=== PATIENT | female | born 1960 | race Caucasian/White ===

== ENCOUNTER 2017-01-18 10:15 | Day surgery (SDCO) | payer MEDICARE, OTHER ==
[~2017-01-18] VITALS: Ht 170.2 cm; Wt 57.7 kg
[2017-01-18 10:46] LABS: BASOPHIL 0.4 % (0-2); EOSINOPHIL 14.7 % (0-5); HCT 46.6 % (37.0-47.0); HGB 15.8 g/dl (12.5-16.0); LYMPHOCYTE 17.3 % (15-48); MCH 31.9 pg (25.0-31.0); MCHC 33.9 g/dL (32.0-36.0); MONOCYTE 6.4 % (0-12); MPV 10.3 fL (6.0-9.5); NEUTROPHIL 61.2 % (41-80); PLT 286 K/uL (150-400); RBC 4.96 M/uL (4.20-5.40); RDW 12.8 % (11.5-14.0); WBC 10.9 K/uL (4.0-10.5)
[2017-01-18 10:54] LABS: LACTIC ACID 1.2 mmol/L (0.5-2.2)
[2017-01-18 10:58] LABS: CREATININE 0.8 mg/dL (0.5-1.0); POTASSIUM 4.3 mmol/L (3.5-5.1)
[2017-01-19] MEDS ORDERED: DUONEB 2.5-0.5M1 AMP NEB (14:00)
[2017-01-19] MEDS ORDERED: ALLERGY MED PO (14:01)
[2017-01-19] MEDS ORDERED: DULERA 200 MCG8.8 GM INH (14:01)
[2017-01-19] MEDS ORDERED: LEG CRAMP MED PO (14:01)
== END 2017-01-19 11:45 | disposition home or self-care (01) ==
LOC: FER 10:15 → FMS 12:02
PROVIDERS: Emergency Medicine; ADMIT Internal Medicine
DX: J44.1 Chronic obstructive pulmonary disease with (acute) exacerbation (principal); Z79.899 Other long term (current) drug therapy; Z87.891 Personal history of nicotine dependence
CPT/HCPCS: 36415; 36600; 71020; 80048; 82803; 83605; 84484; 85025; 85379; 93005; 94010; 94640; 94667; 94668; G0378; J2930